=== PATIENT | male | born 1945 | race Caucasian/White ===

== ENCOUNTER 2017-04-13 15:53 | Inpatient (IN) | payer MEDICARE, BC ==
--- NOTE | 2017-04-13 17:24 | RAD ---
PORTABLE CHEST 1 VIEW: Date: 04/13/17 Time: 1629 hours HISTORY: Fever. FINDINGS: The heart size is borderline. The lungs are well expanded without focal areas of consolidation, pneu mothorax, isma pulmonary edema, or pleural effusions. IMPRESSION: No acute process. POS: [facility]
[2017-04-13 17:50] LABS: #Lymphocytes 2.4 thou/uL (1.20-3.40); #Monocytes 0.8 thou/uL (0.11-0.59); #Neutrophils 6.6 thou/uL (1.40-6.50); %Basophils 0.2 % (0.0-1.0); %Eosinophils 0.1 % (0.0-10.0); %Lymphocytes 24.7 % (21.0-51.0); %Monocytes 7.9 % (0.0-10.0); Mean Platelet Volume 6.5 fL (7.4-10.4); Red Blood Cell (RBC) Count 5.07 mill/uL (4.70-6.10); White Blood Cell (WBC) Count 9.8 thou/uL (4.8-10.8)
[2017-04-13 18:11] LABS: Lactic Acid - Sepsis 1.8 mmol/L (0.5-2.2)
[2017-04-13 18:16] LABS: ALT (SGPT) 15 U/L (8-55); AST (SGOT) 18 U/L (5-34); Alkaline Phosphatase 62 U/L (40-150); Anion Gap 11 mmol/L (10-20); BUN (Urea Nitrogen) 15 mg/dL (8.4-25.7); Bilirubin, Total 0.8 mg/dL (0.2-1.2); CK (CPK) 34 U/L (30-200); Calc. Creatinine Clearance 0 mL/min (70-130); Calcium 10.2 mg/dL (7.8-10.44); Carbon Dioxide 24 mmol/L (23-31); Chloride 101 mmol/L (98-107); Estimated GFR-MDRD 57; Protein, Total 8.1 g/dL (5.8-8.1)
[2017-04-13 18:28] LABS: Troponin I 0.012 ng/mL (< 0.028)
[2017-04-13 19:10] LABS: Bilirubin Negative (Negative); Blood, Urine Small (Negative); Glucose, Urine (Dipstick) Negative (Negative); Ketone, Urine Negative (Negative); Nitrite Negative (Negative); Protein, Urine (Dipstick) 30 mg/dL (Neg-Trace); Urobilinogen 0.2 mg/dL (0.2-1.0)
[2017-04-13 19:12] LABS: Bacteria/HPF None Seen HPF (None Seen); Hyaline Casts/LPF 0-3 HYALINE CAST LPF (0-3 Hyaline); RBC/HPF 0-3 HPF (0-3); Squamous Epithelial 0-3 HPF (0-3); WBC/HPF 0-3 HPF (0-3)
[2017-04-13] MEDS ORDERED: SUMAtriptan Succinate 6 MG/0.5 ML VIAL SC SCH (19:15)
--- NOTE | 2017-04-13 21:40 | PDOC.EVN ---
Event Note - Event Note Event Note: [id number] h&P dictated 1. Headche + Encephalopathy 2. Fever 3. Chronic pain 4. h/o migraine plan: d/w pt, pt and son in law about possible need for LP if fever and confusion persists. they want to wait unless it is absolutely needed. Clinically pt headache resolved, mental status improved. doesn't appear meningitis. Will hols off lp tonight and will wait for neuro input.
[2017-04-13] MEDS ORDERED: Sodium Chloride 0.9% 1,000 ML IV SCH (21:45)
--- NOTE | 2017-04-13 22:05 | CT ---
CT BRAIN WITHOUT CONTRAST: 04/13/17 HISTORY: Altered mental status. FINDINGS: There are changes of chronic small vessel ischemic disease and mild cortical atrophy. The ventricula r size is appropriate and the basilar cisterns patent. No evidence of acute infarct, hemorrhage, midline shift or abnormal extra-axial fluid collections ar e seen. The bony calvarium is intact. The visualized paranasal sinuses and mastoid air cells are wel l aerated. IMPRESSION: No CT evidence of acute intracranial process. POS: [facility]
[2017-04-13] MEDS ORDERED: HYDROcodone/Acetaminophen 5/325 mg Tablet PO PRN (22:09)
[2017-04-13] MEDS ORDERED: Ondansetron HCl/PF 4 MG/2 ML Vial IVP PRN (22:09)
[2017-04-13] MEDS ORDERED: ALPRAZolam 0.25 MG TAB PO PRN (22:09)
[2017-04-13 22:13] VITALS: BMI 30.4
[2017-04-13] MEDS: Piperacillin/Tazobactam 3.375 GM in Sodium Chloride 0.9% 100 ML IVPB SCH (23:55)
[2017-04-14 04:16] LABS: #Lymphocytes 1.6 thou/uL (1.20-3.40); #Monocytes 0.5 thou/uL (0.11-0.59); #Neutrophils 5.4 thou/uL (1.40-6.50); %Basophils 0.3 % (0.0-1.0); %Eosinophils 0.1 % (0.0-10.0); %Lymphocytes 21.3 % (21.0-51.0); %Monocytes 6.9 % (0.0-10.0); Hematocrit 39.6 % (42.0-52.0); Mean Platelet Volume 6.8 fL (7.4-10.4); Red Blood Cell (RBC) Count 4.31 mill/uL (4.70-6.10); White Blood Cell (WBC) Count 7.6 thou/uL (4.8-10.8)
[2017-04-14] MEDS: Acetaminophen 325 MG TAB PO PRN ×2 (04:24→18:06)
[2017-04-14 04:40] LABS: Anion Gap 7 mmol/L (10-20); BUN (Urea Nitrogen) 14 mg/dL (8.4-25.7); Calc. Creatinine Clearance 84 mL/min (70-130); Calcium 8.9 mg/dL (7.8-10.44); Carbon Dioxide 25 mmol/L (23-31); Chloride 106 mmol/L (98-107); Estimated GFR-MDRD 63
[2017-04-14] MEDS: Piperacillin/Tazobactam 3.375 GM in Sodium Chloride 0.9% 100 ML IVPB SCH ×2 (05:24→11:47)
--- NOTE | 2017-04-14 06:22 | HP ---
DATE OF ADMISSION: 04/13/2017 CHIEF COMPLAINT: Fever, headache. HISTORY OF PRESENT ILLNESS: The patient is a 72-year-old male with past medical history of chronic back pain and migraine headaches who comes in because of fever. The patient started having fever this afternoon all of a sudden. He denies any cough, denies any sputum production, denies any dysuria. The patient had some confusion also with the fever. The patient went to see PCP, he wanted for the patient to come to the ER. The patient admits to headache since last night. Headache dull kind, moderate in intensity, improved this morning, but got worse this afternoon. He has a history of migraine headaches. He felt the headache is similar to the migraine headache. The patient's headache improved in the ER after getting Imitrex. Denies any headache at this time. Denies any photophobia, denies any seizure-like activity at this time, denies chest pain, denies any trouble with breathing, denies any cough, denies sputum production. PAST MEDICAL HISTORY: As per history if present illness. PAST SURGICAL HISTORY: Hernia repair, knee surgery bilateral. SOCIAL HISTORY: No smoking, no alcohol, denies any drugs. FAMILY HISTORY: Positive for heart problems. MEDICATIONS: Reviewed list. REVIEW OF SYSTEMS: CONSTITUTIONAL: Denies any fever, denies any chills at this time, but has fever at home. EYES: Denies any vision problems. EARS: No hearing loss. NECK: Denies neck pain. CARDIOVASCULAR SYSTEM: Denies any chest pain, denies any cough. RESPIRATORY: Denies dyspnea on exertion. GASTROINTESTINAL: Denies any nausea, vomiting. MUSCULOSKELETAL: Denies any joint deformities. NEURO: Cranial nerves system positive for confusion. PSYCHIATRIC: Denies anxiety. All other review of systems are reviewed and are negative. PHYSICAL EXAMINATION: VITAL SIGNS: Blood pressure 143/70, heart rate 77, pulse ox 100% on room air. GENERAL: The patient appears comfortable. ENT: Nares patent. Ears; hearing normal. Pinna normal. NECK: No meningeal signs. Nontender to palpation of the neck. Good range of motion. CARDIOVASCULAR: S1 and S2 present. Regular rate and rhythm. No murmurs, no rubs, no gallops. RESPIRATORY SYSTEM: No wheezing, no rhonchi. GASTROINTESTINAL: Abdomen is soft, nontender, nondistended. No guarding, no organomegaly. MUSCULOSKELETAL: No edema. INTEGUMENT: No rash seen. NEURO: Cranial nerves II through XII are intact. Awake. Follows commands. Sensory intact. LABORATORY: At the time of admission performed, white count 9.8, hemoglobin 15.4, platelet count 194. BMP showed sodium 132, potassium 4.2, chloride 101, CO2 24, BUN 15, creatinine 1.25. AST 18, ALT 15, albumin 4.1. UA, specific gravity 1.012, protein 13, blood small. Chest x-ray, no obvious infiltrate seen. ASSESSMENT AND PLAN: The patient is an 72-year-old male. 1. Fever, etiology unclear. Plan to start antibiotics. Plan to do cultures. Plan to consult ID to evaluate the patient. We will monitor the patient closely. 2. Headache, resolved at this time, but with encephalopathy. Plan to consult Neuro to evaluate the patient. Plan to do a CT head without contrast to rule out any other etiology. We will monitor mental status closely. 3. History of migraines, p.r.n. Imitrex. 4. Chronic pain, p.r.n. pain medications. Monitor the patient closely. case d/w pt & RN & Pt family at bedside [facility]
[2017-04-14] MEDS ORDERED: Loratadine 10 MG TAB PO PRN (09:20)
[2017-04-14] MEDS ORDERED: Artificial Tears 18 DROP/0.9 ML EA EYE PRN (09:20)
[2017-04-14] MEDS ORDERED: Milk Of Magnesia 30 ML UDCUP PO PRN (09:20)
[2017-04-14] MEDS ORDERED: Chloraseptic Spray 180 ml Bottle PO PRN (09:20)
[2017-04-14] MEDS ORDERED: hydrALAZINE 20 MG/ML VIAL SLOW IVP PRN (09:20)
[2017-04-14] MEDS ORDERED: Diabetic Tussin 200 MG/10 ML UDCUP PO PRN (09:20)
[2017-04-14] MEDS ORDERED: Eucerin (Mineral Oil/Petrolatum,White) 30 gm Jar TOP PRN (09:20)
[2017-04-14] MEDS ORDERED: Temazepam 15 MG CAP PO PRN (09:20)
[2017-04-14] MEDS ORDERED: Ondansetron ODT 4 MG TAB PO PRN (09:20)
[2017-04-14] MEDS ORDERED: Loperamide HCl 2 MG CAP PO PRN (09:20)
[2017-04-14] MEDS ORDERED: Mag-Al 1200 mg/1200 mg/30 ML UDCUP PO PRN (09:20)
[2017-04-14] MEDS ORDERED: Sodium Chloride 0.65% Nasal 44 ML BOT EA NARE PRN (09:20)
[2017-04-14] MEDS ORDERED: Senokot 8.6 MG TAB PO PRN (09:20)
[2017-04-14] MEDS: Heparin 5,000 UNITS/ML VIAL SC SCH ×3 (09:26→20:30)
--- NOTE | 2017-04-14 10:43 | PDOC.PN ---
- Subjective Encounter Start Date: 04/14/17 Encounter Start Time: 09:40 -: old records requested/rev history obtained, has no headache now, had low grade fever last night, per family pt is still not normal and appears slow and confused - Objective Resuscitation Status: Resuscitation Status FULL:Full Resuscitation MAR Reviewed: Yes Vital Signs & Weight: Vital Signs (12 hours) Temp Pulse Resp BP Pulse Ox 04/14/17 08:29 98.1 F 67 20 114/65 94 L 04/14/17 05:28 98.3 F 04/14/17 04:20 100.8 F H 79 16 133/72 95 04/14/17 00:00 97.7 F 90 20 120/73 96 04/13/17 22:53 97.9 F 60 14 92 L Weight Weight 224 lb 6.4 oz I&O: 04/13/17 04/14/17 04/15/17 06:59 06:59 06:59 Intake Total 1515 Balance 1515 Result Diagrams: 04/14/17 03:42 04/14/17 03:42 Radiology Reviewed by me: Yes (CT brain and chest xray) Phys Exam - Physical Examination Constitutional: NAD HEENT: PERRLA, moist MMs, sclera anicteric Neck: no nodes, no JVD, supple, full ROM no neck stiffness Respiratory: no wheezing, no rales, no rhonchi Cardiovascular: RRR, no significant murmur, no rub Gastrointestinal: soft, non-tender, no distention, positive bowel sounds Musculoskeletal: no edema, pulses present Neurological: non-focal, normal sensation, moves all 4 limbs Lymphatic: no nodes Psychiatric: normal affect Skin: no rash, normal turgor Dx/Plan (1) Encephalopathy acute Code(s): G93.40 - ENCEPHALOPATHY, UNSPECIFIED Status: Acute (2) Fever Code(s): R50.9 - FEVER, UNSPECIFIED Status: Acute (3) Headache Code(s): R51 - HEADACHE Status: Resolved (4) H/O migraine Code(s): Z86.69 - PERSONAL HISTORY OF DIS OF THE NERVOUS SYS AND SENSE ORGANS Status: Chronic (5) Obesity (BMI 30.0-34.9) Code(s): E66.9 - OBESITY, UNSPECIFIED Status: Chronic - Plan cont current plan of care, plan discussed w/ family, continue antibiotics, PT/OT * currently on empiric zosyn * labs are normal * LP offered for diagnosis but they wanted to wait until ID and neurology see him * follow culture * medication reviewed as below * symptomatic treatment * suspected viral syndrome with ? viral meningitis. Review of Systems - Review of Systems Constitutional: negative: Fever, Chills, Sweats, Weakness, Malaise, Other ENT: negative: Ear Pain, Ear Discharge, Nose Pain, Nose Discharge, Nose Congestion, Mouth Pain, Mouth Swelling, Throat Pain, Throat Swelling, Other Respiratory: negative: Cough, Dry, Shortness of Breath, Hemoptysis, SOB with Excertion, Pleuritic Pain, Sputum, Wheezing Cardiovascular: negative: Chest Pain, Palpitations, Orthopnea, Paroxysmal Noc. Dyspnea, Edema, Light Headedness, Other Gastrointestinal: negative: Nausea, Vomiting, Abdominal Pain, Diarrhea, Constipation, Melena, Hematochezia, Other Genitourinary: negative: Dysuria, Frequency, Incontinence, Hematuria, Retention , Other Musculoskeletal: negative: Neck Pain, Shoulder Pain, Arm Pain, Back Pain, Hand Pain, Leg Pain, Foot Pain, Other Skin: negative: Rash, Lesions, Dwaine, Bruising, Other - Medications/Allergies Allergies/Adverse Reactions: Allergies Allergy/AdvReac Type Severity Reaction Status Date / Time levofloxacin [From Levaquin] Allergy Anaphylaxis Verified 04/13/17 22:26 Sulfa (Sulfonamide Allergy FLUSHING, Verified 01/29/17 09:59 Antibiotics) HIVES Medications: Current Medications Acetaminophen (Tylenol) 650 mg PO Q4H PRN PRN Reason: Headache/Fever or Pain Last Admin: 04/14/17 04:24 Dose: 650 mg Hydrocodone Bitart/Acetaminophen ([place] 5/325) 1 tab PO Q4H PRN PRN Reason: Moderate Pain (4-6) Al Hydroxide/Mg Hydroxide (Maalox) 15 ml PO Q4H PRN PRN Reason: Heartburn or Indigestion Alprazolam (Xanax) 0.25 mg PO ONE PRN PRN Reason: .ANXIETY Stop: 04/14/17 22:10 Artificial Tears (Tears Naturale) 0 drop EA EYE PRN PRN PRN Reason: Dry Eyes Famotidine (Pepcid) 20 mg PO BID SARA Guaifenesin (Robitussin Sf) 200 mg PO Q4H PRN PRN Reason: Cough Heparin Sodium (Porcine) (Heparin) 5,000 units SC TID [facility] Last Admin: 04/14/17 09:26 Dose: 5,000 units Hydralazine HCl (Apresoline) 10 mg SLOW IVP Q4H PRN PRN Reason: Systolic BP > 180 Piperacillin Sod/Tazobactam (Sod 3.375 gm/ Sodium Chloride) 100 mls @ 200 mls/ hr IVPB Q6HR [facility] Last Admin: 04/14/17 05:24 Dose: 100 mls Loperamide HCl (Imodium) 2 mg PO PRN PRN PRN Reason: Diarrhea/Loose Stools Loratadine (Claritin) 10 mg PO DAILYPRN PRN PRN Reason: Sinus Symptoms Magnesium Hydroxide (Milk Of Magnesium) 30 ml PO DAILYPRN PRN PRN Reason: Constipation Mineral Oil/White Petrolatum (Eucerin Cream) 0 gm TOP BIDPRN PRN PRN Reason: Dry Skin Ondansetron HCl (Zofran) 4 mg IVP Q6H PRN PRN Reason: Nausea/Vomiting Ondansetron HCl (Zofran Odt) 4 mg PO Q6H PRN PRN Reason: Nausea/Vomiting Phenol (Chloraseptic [place] 180 Ml Bot) 0 ml PO PRN PRN PRN Reason: Sore Throat Senna (Senokot) 2 tab PO HSPRN PRN PRN Reason: Constipation Sodium Chloride ([place] Nasal [place] 0.65%) 0 ml EA NARE QIDPRN PRN PRN Reason: Nasal Congestion Temazepam (Restoril) 15 mg PO HSPRN PRN PRN Reason: Insomnia
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
[2017-04-14] MEDS: Famotidine 20 MG TAB PO SCH (20:29)
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
[2017-04-15 08:37] VITALS: TEMP 98.2
[2017-04-15] MEDS: Heparin 5,000 UNITS/ML VIAL SC SCH (09:02)
[2017-04-15] MEDS: Famotidine 20 MG TAB PO SCH (09:02)
[2017-04-15 09:25] VITALS: BP 145/74
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
== END 2017-04-15 09:26 | disposition home or self-care (01) | DRG 864 ==
LOC: ERS 15:53 → T4-B 21:25
PROVIDERS: ADMIT Family Medicine; ATTEND Family Medicine
DX: R50.9 Fever, unspecified (principal); G93.40 Encephalopathy, unspecified; R56.1 Post traumatic seizures; G43.109 Migraine with aura, not intractable, without status migrainosus; J30.9 Allergic rhinitis, unspecified; J32.9 Chronic sinusitis, unspecified; F40.240 Claustrophobia; G89.29 Other chronic pain; E66.9 Obesity, unspecified; Z68.30 Body mass index [BMI] 30.0-30.9, adult; V89.2XXS Person injured in unspecified motor-vehicle accident, traffic, sequela
CPT/HCPCS: 36415; 70450; 71010; 80048; 80053; 81003; 81015; 82550; 82553; 83605; 84484; 85025; 87040; 87633; 93005; 96360; 96372; G8978-GP-CJ; G8979-GP-CI; J1644; J2543; J3030; J7050

== ENCOUNTER 2017-07-20 09:02 | Outpatient (CLI) | payer MEDICARE, BC ==
--- NOTE | 2017-07-20 11:59 | MRI ---
BRAIN MRI WITH AND WITHOUT CONTRAST: Date: 07/20/17 HISTORY: Slurred speech. Altered mental status. COMPARISON: None. TECHNIQUE: Brain MRI is performed without intravenous Gadolinium administration. Multisequential, multiplanar im aging is performed. FINDINGS: No hemorrhage on the axial gradient echo sequence. No parenchymal mass, mass effect, or midline shift. Brain volume is age-appropriate. Cortical mcmahon-wh ite matter differentiation is preserved. Ventricles and sulci are patent and symmetric. T2 and FLAIR white matter hyperintensities due to chronic small vessel ischemic change. Central arterial flow-voids are maintained. Absent restricted diffusion. Bilateral ocular lens implant. Adequate aeration of the sinuses and mastoid air cells. Calvarium has a normal marrow signal intensity. Midline brain parenchymal structures are unremarkable . No pathologic enhancement of the brain parenchyma. IMPRESSION: 1. Chronic small vessel ischemic changes of white matter. 2. No pathologic enhancement of brain parenchyma. 3. Absent restricted diffusion. 4. No acute infarction. POS: [facility]
[2017-07-20] MEDS ORDERED: Gadobenate Dimeglumine 529 MG/1 ML (20ML VIAL) ONE (14:05)
== END 2017-07-20 09:03 | disposition home or self-care (01) ==
LOC: MRI 09:02
PROVIDERS: ATTEND Psychiatry & Neurology Neurology
DX: R47.81 Slurred speech (principal); I67.82 Cerebral ischemia
CPT/HCPCS: 70553; A9579

== ENCOUNTER 2019-06-05 18:30 | Emergency (ER) | payer MEDICARE, BC ==
[2019-06-05] MEDS ORDERED: Metoclopramide HCl 10 MG/2 ML VIAL ONE (19:06)
[2019-06-05] MEDS ORDERED: diphenhydrAMINE 50 MG/ML VIAL ONE (19:06)
[2019-06-05 19:21] LABS: #Eosinphils 0.2 thou/uL (0.0-0.7); #Lymphocytes 3.4 thou/uL (1.20-3.40); #Monocytes 0.5 thou/uL (0.11-0.59); #Neutrophils 3.3 thou/uL (1.40-6.50); %Basophils 0.6 % (0.0-1.0); %Eosinophils 2.4 % (0.0-10.0); %Lymphocytes 45.6 % (21.0-51.0); %Monocytes 7.1 % (0.0-10.0); %Neutrophils 44.2 % (42.0-75.0); Hemoglobin 14.4 g/dL (14.0-18.0); Mean Corpuscular HGB CONC 33.9 g/dL (32.0-36.0); Mean Corpuscular Hemoglobin 30.3 pg (27.0-31.0); Mean Corpuscular Volume 89.5 fL (78.0-98.0); Mean Platelet Volume 7.2 fL (7.4-10.4); Platelet Count 211 thou/uL (130-400); RBC Distribution Width 11.9 % (11.5-14.5); Red Blood Cell (RBC) Count 4.75 mill/uL (4.70-6.10); White Blood Cell (WBC) Count 7.5 thou/uL (4.8-10.8)
[2019-06-05 19:31] LABS: INR-International Normal Ratio 0.9; PTT 33.8 SEC (22.9-36.1); Prothrombin Time 12.4 SEC (12.0-14.7)
--- NOTE | 2019-06-05 19:35 | CT ---
Head CT without contrast 06/05/2019: COMPARISON: 04/13/2017 HISTORY: Headache, dizziness TECHNIQUE: Axial CT imaging at 5 mm intervals from vertex through skull base without contrast FINDINGS: Imaged paranasal sinuses and mastoid air cells well-aerated. No displaced calvarial fractur e. Mild diffuse cerebral volume loss with prominence of the CSF containing spaces. No intracranial hemorrhage, midline shift, mass effect, or ventricular enlargement. IMPRESSION: Stable head CT-no intracranial hemorrhage.
[2019-06-05 19:42] LABS: ALT (SGPT) 13 U/L (8-55); AST (SGOT) 18 U/L (5-34); Alkaline Phosphatase 63 U/L (40-110); Anion Gap 13 mmol/L (10-20); BUN (Urea Nitrogen) 17 mg/dL (8.4-25.7); Bilirubin, Total 0.3 mg/dL (0.2-1.2); Calc. Creatinine Clearance 0 mL/min (70-130); Calcium 9.9 mg/dL (7.8-10.44); Carbon Dioxide 25 mmol/L (23-31); Chloride 104 mmol/L (98-107); Estimated GFR-MDRD 52; Globulin 3.6 g/dL (2.4-3.5); Glucose 88 mg/dL (83-110); Potassium 3.8 mmol/L (3.5-5.1); Protein, Total 7.6 g/dL (5.8-8.1); Sodium 138 mmol/L (136-145)
== END 2019-06-05 20:33 | disposition home or self-care (01) ==
LOC: ERS 18:30
DX: G43.909 Migraine, unspecified, not intractable, without status migrainosus (principal); F32.9 Major depressive disorder, single episode, unspecified; Z79.899 Other long term (current) drug therapy
CPT/HCPCS: 70450; 80053; 85025; 85610; 85730; 96365; 96375; J1200; J2765

== ENCOUNTER 2021-03-30 08:35 | Inpatient (IN) | payer OTHER, MEDICARE, BC ==
[2021-03-30] MEDS ORDERED: Morphine 4 MG/ML VIAL ONE ×2 (08:55→11:18)
[2021-03-30 09:31] LABS: #Eosinphils 0.1 thou/uL (0.0-0.7); #Lymphocytes 2.3 thou/uL (1.20-3.40); #Monocytes 0.5 thou/uL (0.11-0.59); #Neutrophils 3.1 thou/uL (1.40-6.50); %Basophils 0.6 % (0.0-1.0); %Eosinophils 1.3 % (0.0-10.0); %Lymphocytes 38.3 % (21.0-51.0); %Neutrophils 51.8 % (42.0-75.0); Hemoglobin 12.8 g/dL (14.0-18.0); Mean Corpuscular Hemoglobin 30.1 pg (27.0-31.0); Mean Corpuscular Volume 91.2 fL (78.0-98.0); Mean Platelet Volume 7.1 fL (7.4-10.4); Platelet Count 198 thou/uL (130-400); RBC Distribution Width 12.1 % (11.5-14.5); Red Blood Cell (RBC) Count 4.24 mill/uL (4.70-6.10)
[2021-03-30 09:45] LABS: Prothrombin Time 12.9 sec (12.0-14.7)
[2021-03-30 09:46] LABS: PTT 35.7 sec (22.9-36.1)
[2021-03-30] MEDS ORDERED: CEFAZOLIN 2 GM in Premix Bag 1 BAG IVPB SCH (10:00)
[2021-03-30 10:27] LABS: ALT (SGPT) 9 U/L (8-55); AST (SGOT) 14 U/L (5-34); Albumin 3.6 g/dL (3.4-4.8); Alkaline Phosphatase 55 U/L (40-110); Anion Gap 12 mmol/L (10-20); BUN (Urea Nitrogen) 21 mg/dL (8.4-25.7); Bilirubin, Total 0.3 mg/dL (0.2-1.2); Calc. Creatinine Clearance 0 mL/min (70-130); Calcium 9.1 mg/dL (7.8-10.44); Carbon Dioxide 24 mmol/L (23-31); Chloride 106 mmol/L (98-107); Glucose 89 mg/dL (83-110); Potassium 4.1 mmol/L (3.5-5.1); Protein, Total 6.6 g/dL (5.8-8.1); Sodium 138 mmol/L (136-145)
[2021-03-30] MEDS ORDERED: Morphine 2 MG/ML VIAL SLOW IVP PRN (12:27)
[2021-03-30] MEDS ORDERED: Ondansetron PF 4 MG/2 ML Vial IVP PRN (12:27)
[2021-03-30] MEDS ORDERED: traMADol HCl 50 MG TAB PO PRN (12:29)
[2021-03-30 13:36] LABS: SARS-CoV-2 NAA Rapid Test Not Detected (NotDetected)
[2021-03-30 14:27] VITALS: BMI 23.2
[2021-03-30] MEDS: Sodium Chloride 0.9% 1,000 ML IV SCH (15:28)
[2021-03-30] MEDS: Acetaminophen 500 MG TAB PO SCH ×2 (15:28→18:26)
[2021-03-30] MEDS ORDERED: ceFAZolin 2 GM/DEX 5% 100 ML BAG ONE (16:50)
[2021-03-30] MEDS ORDERED: Lidocaine 2% Jelly 5 ML TUBE ONE (17:18)
[2021-03-30] MEDS ORDERED: Fentanyl 100 MCG/2 ML VIAL ONE ×3 (17:18→19:13)
[2021-03-30] MEDS ORDERED: Lidocaine 1% PF 5 ML VIAL ONE (17:33)
[2021-03-30] MEDS ORDERED: Ondansetron PF 4 MG/2 ML Vial ONE (17:33)
[2021-03-30] MEDS ORDERED: PHENYLEPHRINE-NS 100 MCG/ML 10 ML SYRINGE ONE (17:33)
[2021-03-30] MEDS ORDERED: PROPOFOL 200 MG/20 ML VIAL ONE (17:33)
[2021-03-30] MEDS ORDERED: Dexamethasone 20 MG/5 ML VIAL ONE (17:33)
[2021-03-30] MEDS ORDERED: traMADol HCl 50 MG TAB PO SCH (18:00)
[2021-03-30] MEDS: Cyclobenzaprine 10 MG TAB PO PRN (21:44)
[2021-03-30] MEDS: Famotidine 20 MG TAB PO SCH (21:44)
[2021-03-30] MEDS: Senokot S 8.6-50 MG TAB PO SCH (21:44)
[2021-03-31] MEDS: ceFAZolin Sodium/D5W 2 GM in Premix Bag 1 BAG IVPB SCH ×2 (01:08→11:06)
[2021-03-31] MEDS: Sodium Chloride 0.9% 1,000 ML IV SCH (01:08)
[2021-03-31] MEDS: Acetaminophen 500 MG TAB PO SCH ×5 (01:09→23:40)
[2021-03-31 05:30] LABS: #Lymphocytes 0.9 thou/uL (1.20-3.40); #Monocytes 0.5 thou/uL (0.11-0.59); #Neutrophils 5.7 thou/uL (1.40-6.50); %Basophils 0.1 % (0.0-1.0); %Eosinophils 0.1 % (0.0-10.0); %Lymphocytes 12.1 % (21.0-51.0); %Monocytes 6.6 % (0.0-10.0); Hemoglobin 12.7 g/dL (14.0-18.0); Mean Corpuscular HGB CONC 31.6 g/dL (32.0-36.0); Mean Corpuscular Hemoglobin 29.2 pg (27.0-31.0); Mean Corpuscular Volume 92.3 fL (78.0-98.0); Mean Platelet Volume 7.3 fL (7.4-10.4); Platelet Count 182 thou/uL (130-400); RBC Distribution Width 11.9 % (11.5-14.5); Red Blood Cell (RBC) Count 4.35 mill/uL (4.70-6.10)
[2021-03-31 05:47] LABS: Phosphorus 3.7 mg/dL (2.3-4.7)
[2021-03-31 05:54] LABS: Anion Gap 11 mmol/L (10-20); BUN (Urea Nitrogen) 14 mg/dL (8.4-25.7); Calc. Creatinine Clearance 55 mL/min (70-130); Calcium 9.6 mg/dL (7.8-10.44); Carbon Dioxide 24 mmol/L (23-31); Chloride 106 mmol/L (98-107); Glucose 131 mg/dL (83-110); Magnesium 1.9 mg/dL (1.6-2.6); Potassium 3.9 mmol/L (3.5-5.1); Sodium 137 mmol/L (136-145)
[2021-03-31] MEDS ORDERED: Magnesium Sulfate 2 GM in Sodium Chloride 0.9% 100 ML IV SCH (08:00)
[2021-03-31] MEDS ORDERED: Magnesium 2 GM/50 ML 2 GM in Premix Bag 1 BAG IVPB SCH (08:00)
[2021-03-31] MEDS: Cyclobenzaprine 10 MG TAB PO PRN ×2 (08:39→16:27)
[2021-03-31] MEDS: Senokot S 8.6-50 MG TAB PO SCH ×2 (08:39→20:03)
[2021-03-31] MEDS: Polyethylene Glycol 3350 17 GM Packet PO SCH (08:39)
[2021-03-31] MEDS: Ibuprofen 600 MG TAB PO PRN (16:27)
[2021-03-31] MEDS: ALPRAZolam 0.25 MG TAB PO PRN (20:03)
[2021-03-31] MEDS: Aspirin 81 mg Enteric Coated Tablet PO SCH (20:04)
[2021-03-31] MEDS: Famotidine 20 MG TAB PO SCH (23:40)
[2021-04-01] MEDS: Ibuprofen 600 MG TAB PO PRN (02:44)
[2021-04-01] MEDS: Cyclobenzaprine 10 MG TAB PO PRN (02:44)
[2021-04-01] MEDS: Acetaminophen 500 MG TAB PO SCH (05:37)
[2021-04-01] MEDS: Senokot S 8.6-50 MG TAB PO SCH ×2 (09:09→19:51)
[2021-04-01] MEDS: Aspirin 81 mg Enteric Coated Tablet PO SCH ×2 (09:09→19:51)
[2021-04-01] MEDS: Polyethylene Glycol 3350 17 GM Packet PO SCH (09:09)
[2021-04-01] MEDS ORDERED: Acetaminophen 325 MG TAB PO SCH (11:45)
[2021-04-01] MEDS: Ibuprofen 600 MG TAB PO SCH ×2 (12:27→19:51)
[2021-04-01] MEDS: Acetaminophen 325 MG TAB PO SCH ×2 (12:27→18:20)
[2021-04-01] MEDS: Acetaminophen/Codeine 30-300mg Tablet PO SCH ×2 (12:28→18:19)
[2021-04-01] MEDS: ALPRAZolam 0.25 MG TAB PO PRN (20:38)
[2021-04-01] MEDS ORDERED: Melatonin 3 MG TAB PO SCH (21:00)
[2021-04-02] MEDS: Acetaminophen/Codeine 30-300mg Tablet PO SCH ×4 (00:06→18:05)
[2021-04-02] MEDS: Acetaminophen 325 MG TAB PO SCH ×4 (00:07→18:04)
[2021-04-02] MEDS: Ibuprofen 600 MG TAB PO SCH (04:10)
[2021-04-02] MEDS: Cyclobenzaprine 10 MG TAB PO PRN (04:11)
[2021-04-02 06:35] LABS: #Eosinphils 0.1 thou/uL (0.0-0.7); #Lymphocytes 2.7 thou/uL (1.20-3.40); #Monocytes 0.7 thou/uL (0.11-0.59); #Neutrophils 3.7 thou/uL (1.40-6.50); %Basophils 0.4 % (0.0-1.0); %Eosinophils 1.7 % (0.0-10.0); %Lymphocytes 36.7 % (21.0-51.0); %Monocytes 10.2 % (0.0-10.0); Mean Corpuscular HGB CONC 33.4 g/dL (32.0-36.0); Mean Corpuscular Hemoglobin 30.9 pg (27.0-31.0); Mean Corpuscular Volume 92.5 fL (78.0-98.0); Mean Platelet Volume 7.5 fL (7.4-10.4); Platelet Count 163 thou/uL (130-400); Red Blood Cell (RBC) Count 3.89 mill/uL (4.70-6.10); White Blood Cell (WBC) Count 7.3 thou/uL (4.8-10.8)
[2021-04-02 06:57] LABS: Anion Gap 9 mmol/L (10-20); BUN (Urea Nitrogen) 14 mg/dL (8.4-25.7); Calc. Creatinine Clearance 49 mL/min (70-130); Calcium 9.2 mg/dL (7.8-10.44); Carbon Dioxide 29 mmol/L (23-31); Chloride 105 mmol/L (98-107); Glucose 89 mg/dL (83-110); Magnesium 2.1 mg/dL (1.6-2.6); Phosphorus 2.8 mg/dL (2.3-4.7); Potassium 3.8 mmol/L (3.5-5.1); Sodium 139 mmol/L (136-145)
[2021-04-02] MEDS: Aspirin 81 mg Enteric Coated Tablet PO SCH (08:31)
[2021-04-02] MEDS: Polyethylene Glycol 3350 17 GM Packet PO SCH (08:31)
[2021-04-02] MEDS: Senokot S 8.6-50 MG TAB PO SCH (08:31)
[2021-04-02] MEDS ORDERED: Potassium Chloride 20 MEQ TAB PO SCH (09:00)
[2021-04-02] MEDS ORDERED: Potassium Phosphate 15 MMOL in Sodium Chloride 0.9% 250 ML 250 ML IVPB SCH (09:00)
[2021-04-02 12:07] VITALS: BP 130/66; TEMP 97.6
[2021-04-02] MEDS ORDERED: Melatonin 3 MG TAB PO SCH (17:00)
== END 2021-04-02 20:30 | DRG 481 ==
LOC: ERS 08:35 → SURG A 10:07
PROVIDERS: ADMIT Surgery; ATTEND Surgery
PROC: 0QS704Z Reposition Left Upper Femur with Internal Fixation Device, Open Approach (ICD-10-PCS; principal; 2021-03-30)
DX: S72.145A Nondisplaced intertrochanteric fracture of left femur, initial encounter for closed fracture (principal); F05 Delirium due to known physiological condition; Z20.822 Contact with and (suspected) exposure to COVID-19; G43.909 Migraine, unspecified, not intractable, without status migrainosus; F32.A Depression, unspecified; G89.29 Other chronic pain; M54.9 Dorsalgia, unspecified; Z96.653 Presence of artificial knee joint, bilateral; M19.09 Primary osteoarthritis, other specified site; G62.9 Polyneuropathy, unspecified; E66.9 Obesity, unspecified; F03.90 Unspecified dementia, unspecified severity, without behavioral disturbance, psychotic disturbance, mood disturbance, and anxiety; R44.1 Visual hallucinations; W01.190A Fall on same level from slipping, tripping and stumbling with subsequent striking against furniture, initial encounter; Y92.008 Other place in unspecified non-institutional (private) residence as the place of occurrence of the external cause; Z79.899 Other long term (current) drug therapy; Z98.890 Other specified postprocedural states; Z68.23 Body mass index [BMI] 23.0-23.9, adult
CPT/HCPCS: 36415; 71045; 72125; 72170; 74176; 76000; 80048; 80053; 83735; 84100; 85025; 85610; 85730; 86850; 86900; 86901; 93005; C1713; G0390; J1100; J2270; J2405; J2704; J3010; J3475; J7050; U0002

== ENCOUNTER 2021-04-22 12:05 | Outpatient (CLI) | payer MEDICARE, BC | END 2021-04-22 12:06 | disposition home or self-care (01) | LOC: BICRAD 12:05 | PROVIDERS: ATTEND Family Medicine | DX: M17.12 Unilateral primary osteoarthritis, left knee (principal); M25.562 Pain in left knee ==

== ENCOUNTER 2022-08-31 10:51 | Day surgery (SDC) | payer MEDICARE, BC ==
[2022-08-27 14:54] VITALS: BMI 24.0
[~2022-08-31 10:51] MED LIST: Magnevist 469MG/ML 20 ML VIAL ONE
[2022-08-31] MEDS ORDERED: PROPOFOL 200 MG/20 ML VIAL ONE (14:00)
[2022-08-31] MEDS ORDERED: Lidocaine 1% PF 5 ML VIAL ONE (14:00)
== END 2022-08-31 16:02 | disposition home or self-care (01) ==
LOC: MRI 10:51
PROVIDERS: ATTEND Family Medicine
DX: R47.01 Aphasia (principal); F40.240 Claustrophobia; G62.9 Polyneuropathy, unspecified; F03.90 Unspecified dementia, unspecified severity, without behavioral disturbance, psychotic disturbance, mood disturbance, and anxiety; M19.90 Unspecified osteoarthritis, unspecified site; Z66 Do not resuscitate; Z87.891 Personal history of nicotine dependence; Z79.82 Long term (current) use of aspirin; Z79.899 Other long term (current) drug therapy; Z88.1 Allergy status to other antibiotic agents; Z88.2 Allergy status to sulfonamides
CPT/HCPCS: 70553; 82565; J2704

== ENCOUNTER 2022-09-04 11:10 | Emergency (ER) | payer MEDICARE, BC ==
[2022-09-04 12:27] LABS: #Basophils 0.1 thou/uL (0.0-0.2); #Eosinphils 0.1 thou/uL (0.0-0.7); #Lymphocytes 3.1 thou/uL (1.20-3.40); #Monocytes 0.7 thou/uL (0.11-0.59); %Basophils 0.9 % (0.0-1.0); %Eosinophils 1.4 % (0.0-10.0); %Lymphocytes 44.6 % (21.0-51.0); %Monocytes 9.3 % (0.0-10.0); %Neutrophils 43.8 % (42.0-75.0); Hemoglobin 13.4 g/dL (14.0-18.0); Mean Corpuscular HGB CONC 32.7 g/dL (32.0-36.0); Mean Corpuscular Hemoglobin 30.1 pg (27.0-31.0); Platelet Count 193 10x3/uL (130-400); RBC Distribution Width 12.4 % (11.5-14.5); Red Blood Cell (RBC) Count 4.44 mill/uL (4.70-6.10); White Blood Cell (WBC) Count 6.9 10x3/uL (4.8-10.8)
[2022-09-04 12:49] LABS: ALT (SGPT) 10 U/L (8-55); AST (SGOT) 14 U/L (5-34); Albumin 3.6 g/dL (3.4-4.8); Alkaline Phosphatase 68 U/L (40-110); Anion Gap 9 mmol/L (10-20); BUN (Urea Nitrogen) 22 mg/dL (8.4-25.7); Bilirubin, Total 0.3 mg/dL (0.2-1.2); Calc. Creatinine Clearance 0 mL/min (70-130); Calcium 9.9 mg/dL (7.8-10.44); Carbon Dioxide 29 mmol/L (23-31); Chloride 104 mmol/L (98-107); Estimated GFR 41; Globulin 3.2 g/dL (2.4-3.5); Glucose 88 mg/dL (83-110); Potassium 3.8 mmol/L (3.5-5.1); Protein, Total 6.8 g/dL (5.8-8.1); Sodium 138 mmol/L (136-145)
[2022-09-04] MEDS ORDERED: Prochlorperazine 10 MG/2 ML VIAL ONE (12:56)
[2022-09-04] MEDS ORDERED: Dexamethasone 4 mg/ml Vial ONE (13:01)
== END 2022-09-04 13:41 | disposition home or self-care (01) ==
LOC: ERS 11:10
DX: R51.9 Headache, unspecified (principal)
CPT/HCPCS: 36415; 70450; 80053; 85025; 96374; 96375; J0780; J1100